=== PATIENT | male | born 1945 | race Caucasian/White ===

== ENCOUNTER → 2024-08-06 | Outpatient (CLI) | payer MEDICARE ==
[~2024-08-06] MED LIST: ASPIRIN325 MG PO; GLIPIZIDE5 MG PO; HYDROCODONE BIT1 T11 PO; JANUMET PO; KEFLEX500 MG PO; LUMIGAN 5 ML5 ML OPH; PRAVASTATIN SOD40 MG PO; Tessalon Perle100 MG PO; ZITHROMAX Z PA250 MG PO; [UNRECOGNIZED DRUG - OTHER] OPH; [UNRECOGNIZED DRUG - OTHER] OT
== END | disposition home or self-care (01) ==
LOC: WOUNDCARE 00:57
PROVIDERS: ATTEND Nurse Practitioner Primary Care
DX: L89.153 Pressure ulcer of sacral region, stage 3 (principal); E10.65 Type 1 diabetes mellitus with hyperglycemia; I11.0 Hypertensive heart disease with heart failure; I50.9 Heart failure, unspecified; M62.59 Muscle wasting and atrophy, not elsewhere classified, multiple sites; I25.10 Atherosclerotic heart disease of native coronary artery without angina pectoris; E78.5 Hyperlipidemia, unspecified; M19.90 Unspecified osteoarthritis, unspecified site; I48.91 Unspecified atrial fibrillation; Z98.42 Cataract extraction status, left eye; Z98.41 Cataract extraction status, right eye; Z98.890 Other specified postprocedural states; Z79.4 Long term (current) use of insulin; Z79.82 Long term (current) use of aspirin; Z79.84 Long term (current) use of oral hypoglycemic drugs; Z79.899 Other long term (current) drug therapy

== ENCOUNTER → 2024-08-13 | Outpatient (CLI) | payer MEDICARE | END | disposition home or self-care (01) | LOC: WOUNDCARE 00:27 | PROVIDERS: ATTEND Nurse Practitioner Primary Care | DX: L89.153 Pressure ulcer of sacral region, stage 3 (principal); E10.65 Type 1 diabetes mellitus with hyperglycemia; I11.0 Hypertensive heart disease with heart failure; I50.9 Heart failure, unspecified; I25.10 Atherosclerotic heart disease of native coronary artery without angina pectoris; I48.91 Unspecified atrial fibrillation; E78.5 Hyperlipidemia, unspecified; M62.59 Muscle wasting and atrophy, not elsewhere classified, multiple sites; M19.90 Unspecified osteoarthritis, unspecified site; Z98.42 Cataract extraction status, left eye; Z98.41 Cataract extraction status, right eye; Z98.890 Other specified postprocedural states; Z79.84 Long term (current) use of oral hypoglycemic drugs; Z79.4 Long term (current) use of insulin ==